=== PATIENT | male | born 1965 | race Caucasian/White ===

== ENCOUNTER 2020-01-07 19:21 | Emergency (ER) | payer MEDICAID ==
[~2020-01-07] VITALS: Ht 167.6 cm; Wt 81.6 kg
[2020-01-07 19:30] VITALS: BP_SYST 144
--- NOTE | 2020-01-07 19:30 | NUR ---
Patient to ER bed 03 to gown for evaluation. Side rails up. Report given to EMELY ROSEN
--- NOTE | 2020-01-07 19:40 | NUR ---
ER at bedside examining patient.
--- NOTE | 2020-01-07 19:40 | NUR ---
Pt Brought in by neighbor.Pt awake,alert, oriented x4. Pt states that his dog ran into him at a dog park approx 24-48 hours ago, into his right testicle. pt states that his righttesticle has become swollen, and painful with pain radiating into R inguinal area and rlq of abdomen. pt denies chest pain, nausea, vomiting, diarrhea,sob, any other medical complaint at this time.pt denies any other medical complaint at this time. pt resting in ed bed without additional complaint. pt vss
[2020-01-07] MEDS ORDERED: MORPHINE 4 MG/ML INJ. SYRINGE IM ONE (20:15)
--- NOTE | 2020-01-07 20:40 | NUR ---
Ultrasound at bedside performing testicular Ultrasound. Myself bedside as scientific manager.
[2020-01-07 20:45] LABS: BASOPHILS # (AUTO) 0.1 K/uL (0.0-0.2); BASOPHILS % (AUTO) 0.7 % (0.0-2.0); EOSINOPHILS # (AUTO) 0.3 K/uL (0.0-0.4); EOSINOPHILS % (AUTO) 2.2 % (0.0-4.0); HEMATOCRIT 39.1 % (36-54); LYMPHOCYTES # (AUTO) 2.3 K/uL (1.0-5.5); LYMPHOCYTES % (AUTO) 17.8 % (20.5-51.5); MEAN CORPUSCULAR HEMOGLOBIN 29 pg (27-31); MEAN CORPUSCULAR HGB CONC 33 % (32-36); MEAN CORPUSCULAR VOLUME 87 fL (79.0-98.0); MONOCYTES % (AUTO) 7.8 % (1.7-9.3); NEUTROPHILS # (AUTO) 9.1 K/uL (1.8-7.7); NEUTROPHILS % (AUTO) 71.5 % (40.0-70.0); PLATELET COUNT (AUTO) 364 K/uL (130-430); RED BLOOD CELL COUNT(AUTO) 4.49 MIL/uL (4.2-6.2); RED CELL DISTRIBUTION WIDTH 13.9 % (9.0-15.0); WHITE BLOOD COUNT (AUTO) 12.8 K/uL (4.8-10.8)
[2020-01-07 21:20] LABS: BILIRUBIN,URINE NEGATIVE (NEGATIVE); COLOR,URINE YELLOW (YELLOW); GLUCOSE,URINE NEGATIVE (NEGATIVE); KETONES,URINE NEGATIVE (NEGATIVE); NITRITE, URINE NEGATIVE (NEGATIVE); PROTEIN URINE NEGATIVE (NEGATIVE); UROBILINOGEN,URINE 0.2 (0.2-1.0)
--- NOTE | 2020-01-07 21:20 | NUR ---
Ultrasound finished at bedside.
[2020-01-07 21:27] LABS: BLOOD, URINE TRACE (NEGATIVE); CLARITY/URINE HAZY (CLEAR); LEUKOCYTE ESTERASE ,URINE 2+ (NEGATIVE)
[2020-01-07 21:29] LABS: BACTERIA,URINE FEW /HPF (None Seen); MUCUS,URINE None Seen /LPF (None Seen); RBC,URINE NONE SEEN /HPF (0-3); WBC,URINE 20-50 /HPF (0-3)
[2020-01-07] MEDS ORDERED: LEVOFLOXACIN 500 MG TABLET PO ONE (22:15)
[2020-01-07 22:40] VITALS: BP_SYST 132
--- NOTE | 2020-01-07 22:40 | NUR ---
Patient given written and verbal discharge instructions and verbalizes understanding. ER MD discussed with patient the results and treatment provided. Patient in stable condition. ID arm band removed. No IV Rx of [place], Levaquin given. Patient educated on pain management and to follow up with PMD. Pain Scale 2/10. Opportunity for questions provided and answered. Medication side effect fact sheet provided.
--- NOTE | 2020-01-08 08:36 | NUR ---
Called patient regarding updated results to scrotal ultrasound. Unable to leave message. Spoke with Dr. Rosas regarding patient discharge and prescription. Patient was sent with Rx, calling to report the abnormality and to follow up with a urologist for further testing.
== END 2020-01-07 22:40 | disposition home or self-care (01) ==
LOC: SED 19:21
DX: N45.1 Epididymitis (principal); N39.0 Urinary tract infection, site not specified; Z88.1 Allergy status to other antibiotic agents
CPT/HCPCS: 36415; 76870; 81000; 85025; 87086; 96372; 99284; J2270

== ENCOUNTER 2021-03-14 07:02 | Emergency (ER) | payer MEDICAID ==
[~2021-03-14] VITALS: Ht 172.7 cm; Wt 72.6 kg
[2021-03-14 07:02] VITALS: BP_SYST 138
[2021-03-14] MEDS ORDERED: MORPHINE 4 MG INJ. 4 MG/ML VIAL IVP ONE (07:30)
[2021-03-14 07:40] LABS: BASOPHILS # (AUTO) 0.1 K/uL (0.0-0.2); BASOPHILS % (AUTO) 0.8 % (0.0-2.0); EOSINOPHILS # (AUTO) 0.2 K/uL (0.0-0.4); EOSINOPHILS % (AUTO) 2.1 % (0.0-4.0); HEMATOCRIT 44.5 % (36-54); HEMOGLOBIN 14.9 g/dL (14.0-18.0); LYMPHOCYTES # (AUTO) 2.3 K/uL (1.0-5.5); MEAN CORPUSCULAR HEMOGLOBIN 29 pg (27-31); MEAN CORPUSCULAR HGB CONC 34 % (32-36); MEAN CORPUSCULAR VOLUME 87 fL (79.0-98.0); MONOCYTES # (AUTO) 0.9 K/uL (0.0-1.0); MONOCYTES % (AUTO) 7.9 % (1.7-9.3); NEUTROPHILS % (AUTO) 69.2 % (40.0-70.0); PLATELET COUNT (AUTO) 331 K/uL (130-430); RED BLOOD CELL COUNT(AUTO) 5.12 MIL/uL (4.2-6.2); RED CELL DISTRIBUTION WIDTH 14.2 % (9.0-15.0); WHITE BLOOD COUNT (AUTO) 11.6 K/uL (4.8-10.8)
[2021-03-14] MEDS ORDERED: IOHEXOL 350 mgI/mL, 150 ML INFUS..BTL IV ONE (07:41)
[2021-03-14 08:02] LABS: ALANINE AMINOTRANSFERASE 79 U/L (12-78); ALBUMIN 3.8 g/dL (3.4-4.8); AMYLASE 43 U/L (0-100); ASPARTATE AMINOTRANSFERASE 107 U/L (10-37); CHLORIDE 103 mmol/L (98-107); CREATININE 1.03 mg/dL (0.55-1.30); GLUCOSE 118 mg/dL (70-99); LIPASE 92 U/L (73-393); POTASSIUM 3.8 mmol/L (3.5-5.1); SODIUM SERUM 140 mmol/L (136-145); TOTAL BILIRUBIN 0.9 mg/dL (0.0-1.0); UREA NITROGEN, BLOOD 16 mg/dL (8-21)
[2021-03-14 08:03] LABS: GFR AFRICAN AMERICAN 97 mL/min (>90)
[2021-03-14 08:04] LABS: ANION GAP < 3 (5-15)
[2021-03-14 08:12] LABS: INR 0.9 (0.80-1.20); PROTHROMBIN TIME 9.3 SECS (9.5-12.5)
[2021-03-14 08:15] LABS: C-REACTIVE PROTEIN QUANT 0.4 mg/dL (0-0.5)
[2021-03-14 08:34] LABS: BILIRUBIN,URINE NEGATIVE (NEGATIVE); BLOOD, URINE NEGATIVE (NEGATIVE); CLARITY/URINE CLEAR (CLEAR); COLOR,URINE YELLOW (YELLOW); GLUCOSE,URINE NEGATIVE (NEGATIVE); KETONES,URINE NEGATIVE (NEGATIVE); LEUKOCYTE ESTERASE ,URINE NEGATIVE (NEGATIVE); NITRITE, URINE NEGATIVE (NEGATIVE); PROTEIN URINE NEGATIVE (NEGATIVE); UROBILINOGEN,URINE 0.2 (0.2-1.0)
[2021-03-14 08:36] LABS: CALCIUM 9.5 mg/dL (8.4-11.0)
[2021-03-14 08:48] LABS: BARBITURATE, URINE NEGATIVE (NEG <=200); METHAMPHETAMINES SCREEN,URINE POSITIVE (NEG <=500); URINE AMPHETAMINE POSITIVE (NEG <=500)
[2021-03-14 08:49] LABS: BENZODIAZEPINE, URINE NEGATIVE (NEG <=150); CANNABINOID, URINE NEGATIVE (NEG <=50); COCAINE, URINE NEGATIVE (NEG <=150); OPIATE, URINE POSITIVE (NEG <=100); PHENCYCLIDINE SCREEN,URINE NEGATIVE (NEG <=25); UR TRICYCLIC ANTIDEPRESSANTS NEGATIVE (NEG <=300); URINE METHADONE NEGATIVE (NEG <=200); URINE OXYCODONE SCREEN NEGATIVE (NEG <=100); URINE PROPOXYPHENE SCREEN NEGATIVE (NEG <=300)
[2021-03-14] MEDS ORDERED: HYDR-3917 PO (09:09)
[2021-03-14] MEDS ORDERED: IBUP-1971 PO (09:09)
[2021-03-14 09:29] VITALS: BP_SYST 138
== END 2021-03-14 09:38 | disposition home or self-care (01) ==
LOC: SED 07:02
DX: R10.13 Epigastric pain (principal); Z88.1 Allergy status to other antibiotic agents; Z79.899 Other long term (current) drug therapy
CPT/HCPCS: 36415; 71275; 76376; 80053; 80307; 81003; 82150; 83605; 83690; 84484; 85025; 85610; 85730; 86140; 93005; 96374; 99285; J2270; Q9967

== ENCOUNTER 2021-04-13 19:18 | Emergency (ER) | payer MEDICAID ==
[~2021-04-13] VITALS: Ht 172.7 cm; Wt 73.5 kg
[~2021-04-13 19:18] MED LIST: HYDR-3917 PO; IBUP-1971 PO
[2021-04-13 19:23] VITALS: BP_SYST 144
--- NOTE | 2021-04-13 20:35 | NUR ---
ER Dr. Najera at bedside examining patient.
[2021-04-13] MEDS ORDERED: NAPR-1172 PO (20:39)
[2021-04-13] MEDS ORDERED: KETOROLAC TROMETHAMINE 60 MG/2 ML VIAL IM ONE (20:45)
--- NOTE | 2021-04-13 20:49 | NUR ---
Medicated per MD orders. Will cont to monitor will observe for any adverse reaction. Bed to low position srup. Patient given written and verbal discharge instructions and verbalizes understanding. ER MD discussed with patient the results and treatment provided. Patient in stable condition. ID arm band removed. Rx of given. Patient educated on pain management and to follow up with PMD. Pain Scale 4. Opportunity for questions provided and answered. Medication side effect fact sheet provided.
== END 2021-04-13 20:51 | disposition home or self-care (01) ==
LOC: SED 19:18
DX: S43.401A Unspecified sprain of right shoulder joint, initial encounter (principal); Z88.1 Allergy status to other antibiotic agents; Z79.899 Other long term (current) drug therapy; W18.39XA Other fall on same level, initial encounter; Y93.89 Activity, other specified; Y92.89 Other specified places as the place of occurrence of the external cause; Y99.8 Other external cause status
CPT/HCPCS: 73030; 96372; 99283; J1885

== ENCOUNTER 2022-07-11 10:44 | Emergency (ER) | payer MEDICAID ==
[~2022-07-11] VITALS: Ht 172.7 cm; Wt 90.7 kg
[~2022-07-11 10:44] MED LIST changes: +NAPR-1172 PO
[2022-07-11 11:10] VITALS: BP_SYST 163
[2022-07-11] MEDS ORDERED: KETOROLAC TROMETHAMINE 60 MG/2 ML VIAL IM ONE (11:15)
[2022-07-11] MEDS ORDERED: cefTRIAXone 1 GM in LIDOCAINE 1%, 20 ML MDV 2.1 ML IM ONE (11:15)
[2022-07-11] MEDS ORDERED: predniSONE 20 MG TABLET PO ONE (11:15)
[2022-07-11] MEDS ORDERED: IBUP-1969 PO (11:21)
[2022-07-11] MEDS ORDERED: AMOX-423 PO (11:21)
[2022-07-11] MEDS ORDERED: TRAM50TA2 PO (11:21)
--- NOTE | 2022-07-11 12:30 | NUR ---
Pt bib self to ED from home CC right facial swelling. Pt notes pain started 2 days ago, and cannot manage the pain and inflammation. right cheek is red, swollen and warm, pt denies fever, skin intact, swallowing with patent airway demonstrated by sips of water. Pt is aaox3 cap return <3 sec.
--- NOTE | 2022-07-11 12:45 | NUR ---
ER at bedside examining patient.
--- NOTE | 2022-07-11 13:25 | NUR ---
Patient given written and verbal discharge instructions and verbalizes understanding. ER MD discussed with patient the results and treatment provided. Patient in stable condition. ID arm band removed. IV catheter removed intact and dressing applied, no active bleeding. Rx of AUGMENTIN AND IBUPROFEN AND ULTRAM given. Patient educated on pain management and to follow up with PMD. Opportunity for questions provided and answered. Medication side effect fact sheet provided.
[2022-07-11 14:46] VITALS: BP_SYST 163
== END 2022-07-11 13:25 | disposition home or self-care (01) ==
LOC: SED 10:44
DX: K04.7 Periapical abscess without sinus (principal); R22.0 Localized swelling, mass and lump, head; Z88.1 Allergy status to other antibiotic agents; Z79.899 Other long term (current) drug therapy
CPT/HCPCS: 99284; 96372; J7512; J0696; J1885; J2001